=== PATIENT | female | born 2000 | race Caucasian/White ===

== ENCOUNTER → 2020-10-30 23:15 | Observation (INO) ==
[2020-10-30 14:47] LABS: Bilirubin,Urine Negative (Negative); Blood,Urine Trace-intact (Negative); Clarity,Urine Cloudy (Clear); Color,Urine Yellow (Yellow); Glucose,Urine (UA) Normal (Normal); Ketones,Urine Negative (Negative); Leukocyte Esterase,Urine Trace (Negative); Nitrite,Urine Negative (Negative); Protein,Urine Negative (Neg-Trace); Urobilinogen,Urine Normal (Normal)
[2020-10-30 15:00] LABS: Bacteria,Urine Many per hpf (None-Few); RBC,Urine 0-3 per hpf (0-3); Squamous Epithelial Cell,Urine Few per hpf (None-Few); WBC,Urine 0-3 per hpf (0-3)
[2020-10-30 16:17] LABS: Basophils # 0.1 K/mcL (0.0-0.2); Basophils % 0.5 %; Eosinophils # 0.2 K/mcL (0.0-0.6); Eosinophils % 1.4 %; Hemoglobin 11.7 g/dL (11.5-15.4); Immature Granulocytes % 1.3 % (0-4); Lymphocytes # 2.3 K/mcL (0.6-4.6); Lymphocytes % 21.5 %; Mean Corpuscular HGB Conc 33.4 g/dL (31.6-35.5); Mean Corpuscular Hemoglobin 32.8 pg (28.0-33.3); Mean Platelet Volume 11.9 fL (9.4-12.4); Monocytes # 0.7 K/mcL (0.0-1.3); Monocytes % 6.8 %; Neutrophils # 7.3 K/mcL (1.6-8.9); Platelet Count 164 K/mcL (140-400); Red Blood Count 3.57 M/mcL (3.82-4.97); Red Cell Distribution Width 11.9 % (11.5-14.5); Segmented Neutrophils % 68.5 %; White Blood Count 10.6 K/mcL (4.3-11.1)
[~2020-10-30 23:15] MED LIST: 0.9 % Sodium Chloride 500 ML ONE; Ringers Solution, Lactated 1,000 ML IVC ONE; Ringers Solution, Lactated 1,000 ML IVC SCH; Ringers Solution, Lactated 1,000 ML ONE; cefTRIAXone 1,000 MG in Water for inj. (sterile) 10 ML IVP ONE
== END | disposition home or self-care (01) ==
LOC: 1NENULAB
PROVIDERS: ADMIT Advanced Practice Midwife; ATTEND Advanced Practice Midwife

== ENCOUNTER 2021-01-19 19:41 | Inpatient (IN) ==
[2021-01-19 08:42] LABS: Basophils % 0.1 %; Eosinophils % 0.6 %; Hematocrit 32.7 % (35.3-44.9); Hemoglobin 10.4 g/dL (11.5-15.4); Immature Granulocytes % 0.4 % (0-4); Lymphocytes # 1.2 K/mcL (0.6-4.6); Lymphocytes % 16.9 %; Mean Corpuscular HGB Conc 31.8 g/dL (31.6-35.5); Mean Corpuscular Hemoglobin 28.1 pg (28.0-33.3); Mean Corpuscular Volume 88.4 fL (83.0-100.0); Mean Platelet Volume 12.5 fL (9.4-12.4); Monocytes # 0.4 K/mcL (0.0-1.3); Monocytes % 6.1 %; Neutrophils # 5.3 K/mcL (1.6-8.9); Platelet Count 152 K/mcL (140-400); Red Cell Distribution Width 13.3 % (11.5-14.5); Segmented Neutrophils % 75.9 %; White Blood Count 6.9 K/mcL (4.3-11.1)
[2021-01-19] MEDS: Ondansetron 4 MG/2 ML VIAL IVP PRN (09:07)
[~2021-01-19 19:41] MED LIST changes: +*HR* Nalbuphine 10 MG/ML AMPUL IV PRN; -0.9 % Sodium Chloride 500 ML ONE; +Famotidine 20 MG/2 ML VIAL IVP PRN; +Lidocaine 1% 20 ML MDV INFILT PRN; +Metoclopramide 10 MG/2 ML VIAL IVP PRN; +Naloxone 0.4 MG/ML INJ IVP PRN; -Ringers Solution, Lactated 1,000 ML IVC ONE; -Ringers Solution, Lactated 1,000 ML ONE; -cefTRIAXone 1,000 MG in Water for inj. (sterile) 10 ML IVP ONE
[2021-01-19] MEDS ORDERED: EPHEDrine 50 MG/ML VIAL IVP PRN (19:58)
[2021-01-19] MEDS ORDERED: Oxytocin 20 units/ LR 1000 mL 20 UNIT/1,000 ML BAG IVC SCH (21:15)
[2021-01-20] MEDS: Epidural Premix (fent/bupiv) 110 ML EP SCH ×2 (04:12→10:05)
[2021-01-20] MEDS ORDERED: *HR* Ropivacaine/PF 0.5% 20 ML VIAL ONE (08:06)
[2021-01-20] MEDS: Ondansetron 4 MG/2 ML VIAL IVP PRN (08:14)
[2021-01-20] MEDS ORDERED: Acetaminophen 325 MG TABLET PO ONE (08:58)
[2021-01-20] MEDS ORDERED: Gentamicin 290 MG in 0.9 % Sodium Chloride 100 ML IVPB ONE (09:00)
[2021-01-20] MEDS ORDERED: *HR* FentaNYL (PF) 100 MCG/2 ML VIAL ONE ×2 (09:49→17:55)
[2021-01-20] MEDS ORDERED: Ampicillin 2,000 MG in 0.9 % Sodium Chloride Mini Bag 100 ML IVPB ONE (10:00)
[2021-01-20] MEDS ORDERED: Lidocaine/EPI 1:200k 2% PF 20 ML VIAL ONE ×2 (11:26→16:56)
[2021-01-20] MEDS ORDERED: Ampicillin 2,000 MG in 0.9 % Sodium Chloride Mini Bag 100 ML IVPB SCH ×2 (15:30→18:00)
[2021-01-20] MEDS ORDERED: *HR* Phenylephrine 10 MG/ML VIAL ONE (16:57)
[2021-01-20] MEDS ORDERED: Ondansetron 4 MG/2 ML VIAL ONE (16:57)
[2021-01-20] MEDS ORDERED: Ketorolac 30 MG/ML VIAL ONE (16:59)
[2021-01-20] MEDS ORDERED: Acetaminophen IV 1,000 MG/100 ML BAG IVPB ONE (16:59)
[2021-01-20] MEDS ORDERED: Azithromycin 500 MG in 0.9 % Sodium Chloride 250 ML IVPB ONE (17:06)
[2021-01-20] MEDS ORDERED: Ketamine *HR* 500 MG/10 ML MDV ONE (17:43)
[2021-01-20] MEDS ORDERED: *HR* HYDROMORPHONE 2 MG/ML VIAL ONE (17:58)
[2021-01-20] MEDS ORDERED: Ondansetron 4 MG/2 ML VIAL IVP PRN ×2 (18:37→22:17)
[2021-01-20] MEDS ORDERED: *HR* HYDROmorphone PF 0.5 MG/0.5 ML SYRINGE IVP PRN (18:37)
[2021-01-20] MEDS ORDERED: Promethazine 6.25 MG in Water for inj. (sterile) 20 ML IVPB PRN (18:37)
[2021-01-20] MEDS ORDERED: *HR* HYDROmorphone 20 MG/20 ML PCA IVC PRN (19:42)
[2021-01-20] MEDS ORDERED: *HR* HYDROmorphone 20 MG/20 ML PCA IVC SCH (22:17)
[2021-01-20] MEDS ORDERED: *HR* OxyCODONE Immed Rel 5 MG TABLET PO PRN (22:17)
[2021-01-20] MEDS ORDERED: Metoclopramide 10 MG/2 ML VIAL IVP PRN (22:17)
[2021-01-20] MEDS ORDERED: Oxytocin 20 units/ LR 1000 mL 20 UNIT/1,000 ML BAG IVC SCH (22:17)
[2021-01-20] MEDS ORDERED: Measles/Mumps/Rubella Vacc 0.5 ML VIAL SQ ONE (22:17)
[2021-01-21] MEDS ORDERED: Ketorolac 30 MG/ML VIAL IVP SCH (00:30)
[2021-01-21 02:16] LABS: Influenza A PCR Negative (Negative); Influenza B PCR Negative (Negative); Resp. Syncytial Virus PCR Negative (Negative)
[2021-01-21 02:18] LABS: SARS-CoV-2 by PCR (In House) Negative (Negative)
[2021-01-21 06:14] LABS: Basophils % 0.1 %; Hematocrit 23.3 % (35.3-44.9); Immature Granulocytes % 0.4 % (0-4); Lymphocytes # 1.2 K/mcL (0.6-4.6); Mean Corpuscular HGB Conc 33.5 g/dL (31.6-35.5); Mean Corpuscular Hemoglobin 29.4 pg (28.0-33.3); Mean Corpuscular Volume 87.9 fL (83.0-100.0); Mean Platelet Volume 12.3 fL (9.4-12.4); Monocytes # 0.8 K/mcL (0.0-1.3); Monocytes % 5.6 %; Neutrophils # 12.4 K/mcL (1.6-8.9); Platelet Count 169 K/mcL (140-400); Red Blood Count 2.65 M/mcL (3.82-4.97); Red Cell Distribution Width 13.6 % (11.5-14.5); Segmented Neutrophils % 85.9 %
[2021-01-21 06:23] LABS: White Blood Count 14.4 K/mcL (4.3-11.1)
[2021-01-21 06:24] LABS: Hemoglobin 7.8 g/dL (11.5-15.4)
[2021-01-21 06:35] LABS: Anisocytosis 1+ (Not Present); Platelet Estimate Normal (Normal)
[2021-01-21] MEDS: Prenatal Vit/FA 1 EACH TABLET PO SCH (08:14)
[2021-01-21] MEDS: cephALEXin 500 MG CAPSULE PO SCH ×3 (08:14→21:34)
[2021-01-21] MEDS: metroNIDAZOLE 500 MG TABLET PO SCH ×3 (08:14→21:34)
[2021-01-21] MEDS: Simethicone 80 MG TAB.CHEW PO SCH ×3 (08:14→21:34)
[2021-01-21] MEDS: Ibuprofen 600 MG TABLET PO SCH ×2 (17:48→18:31)
[2021-01-21] MEDS: Acetaminophen 325 MG TABLET PO SCH ×2 (17:48→18:30)
[2021-01-21] MEDS: *HR* OxyCODONE/APAP 5/325 TABLET PO PRN (21:36)
[2021-01-22] MEDS: Ibuprofen 600 MG TABLET PO SCH ×3 (00:30→11:33)
[2021-01-22] MEDS: Acetaminophen 325 MG TABLET PO SCH (05:35)
[2021-01-22 08:32] VITALS: BP 109/69; PULSE 95; TEMP 98.4; O2SAT 98
[2021-01-22] MEDS: Simethicone 80 MG TAB.CHEW PO SCH (08:58)
[2021-01-22] MEDS: cephALEXin 500 MG CAPSULE PO SCH (08:59)
[2021-01-22] MEDS: Prenatal Vit/FA 1 EACH TABLET PO SCH (08:59)
[2021-01-22] MEDS: metroNIDAZOLE 500 MG TABLET PO SCH (08:59)
[2021-01-22] MEDS: *HR* OxyCODONE/APAP 5/325 TABLET PO PRN (11:33)
== END 2021-01-22 11:58 | disposition home or self-care (01) | DRG 540 ==
LOC: 1NENULAB → 1NENUOBS 01-20 21:43
PROVIDERS: ADMIT Advanced Practice Midwife; ATTEND Advanced Practice Midwife